=== PATIENT | female | born 1980 | race Caucasian/White ===

== ENCOUNTER 2018-02-08 21:54 | Emergency (ER) | payer OTHER ==
[~2018-02-08] VITALS: Ht 172.7 cm; Wt 79.2 kg
[~2018-02-08 21:54] MED LIST: DEXTROAMPHETAMI15 MG PO; JUNEL FE 1/21 TABLET PO
[2018-02-08 22:21] LABS: HEMATOCRIT 39.9 % (36.0-46.0); HEMOGLOBIN 13.2 G/DL (11.9-15.5); MCH 31.3 PG (29.0-34.0); MCHC 33.1 G/DL (30.0-36.0); MCV 94.5 FL (83-99); PLATELET COUNT 285 K/uL (156-360); RBC DIS.WIDTH-CV 13.6 % (11.8-14.6); RBC DIS.WIDTH-SD 47.2 % (39-53); RED BLOOD COUNT 4.22 M/uL (3.80-5.20); WHITE BLOOD COUNT 11.1 K/uL (4.1-10.2)
[2018-02-08 22:31] LABS: CHLORIDE 104 mEq/L (99-109); POTASSIUM 3.7 mEq/L (3.7-5.4); SODIUM 140 mEq/L (136-147)
[2018-02-08 22:34] LABS: GLUCOSE 143 mg/dL (70-99); TOTAL PROTEIN 7.2 g/dL (6.4-8.3)
[2018-02-08 22:35] LABS: TOTAL BILIRUBIN 0.2 mg/dL (0.0-1.0)
[2018-02-08 22:36] LABS: SERUM ETHYL ALCOHOL 166 mg/dL
[2018-02-08 22:37] LABS: ALKALINE PHOSPHATASE 48 IU/L (3-129); CREATININE 1.1 mg/dL (0.6-1.3); GFR ESTIMATE (CALCULATED) > 59 mL/min/
[2018-02-08 22:38] LABS: UREA NITROGEN (BUN) 15 mg/dL (9-23)
[2018-02-08 22:39] LABS: AST (GOT) 24 IU/L (2-34)
[2018-02-08 22:40] LABS: ALT (GPT) 40 IU/L (3-49)
[2018-02-08 22:47] LABS: QUANTITATIVE HCG < 4.0 MIU/ML
[2018-02-09 01:45] VITALS: BP 99/64
== END 2018-02-09 01:51 | disposition home or self-care (01) ==
LOC: EME → EDBD 21:54 → EME 21:54
PROVIDERS: Emergency Medicine
DX: F10.129 Alcohol abuse with intoxication, unspecified (principal); Y90.6 Blood alcohol level of 120-199 mg/100 ml; R55 Syncope and collapse; Z72.0 Tobacco use; Z91.013 Allergy to seafood
CPT/HCPCS: 80053; 81003; 84702; 85027; 99281; 99284; G0480; J7030